=== PATIENT | female | born 1935 | race Caucasian/White ===

== ENCOUNTER 2019-10-18 13:03 | Emergency (ER) | payer SELFPAY ==
[~2019-10-18] VITALS: Ht 134.6 cm; Wt 50.3 kg
[2019-10-18 13:19] VITALS: BP 141/55
--- NOTE | 2019-10-18 13:22 | NUR ---
ELISABETH FROM HOME C/O R HIP PAIN S/P FALL X 20 MINS AGO. DENIES LOC. PATIENT STATES PAIN OF 05/19 AT THIS TIME. PATIENT POSITIONED FOR COMFORT; HOB ELEVATED; BEDRAILS UP X2; BED DOWN. ELLIOTT CELAYA MADE AWARE OF PT STATUS. Addendum: 10/18/19 at 1323 by [facility] PT GOT FENTANYL 10 MG VIA MUSCLE AT 13.00 PM.
[2019-10-18] MEDS ORDERED: KETOROLAC 30 MG/ML VIAL IVP ONE (13:30)
--- NOTE | 2019-10-18 13:43 | NUR ---
Patient taken to CT scan via gurney by [facility].
[2019-10-18 14:14] LABS: BASOPHILS % (AUTO) 0.7 % (0.0-2.0); EOSINOPHILS % (AUTO) 1.5 % (0.0-4.0); HEMATOCRIT 36.9 % (36-48); HEMOGLOBIN 12.3 g/dL (12.0-16.0); LYMPHOCYTES # (AUTO) 1.2 K/uL (2.5-16.5); LYMPHOCYTES % (AUTO) 43.6 % (20.5-51.1); MEAN CORPUSCULAR HEMOGLOBIN 31 pg (27-31); MEAN CORPUSCULAR HGB CONC 33 g/dL (33-37); MEAN CORPUSCULAR VOLUME 92.9 fL (80-94); MONOCYTES # (AUTO) 0.2 K/uL (0.8-1.0); MONOCYTES % (AUTO) 6.7 % (1.7-9.3); NEUTROPHILS # (AUTO) 1.3 K/uL (1.8-7.7); NEUTROPHILS % (AUTO) 47.5 % (42.2-75.2); PLATELET COUNT (AUTO) 190 K/uL (140-450); RED BLOOD CELL COUNT(AUTO) 3.97 MIL/uL (4.20-5.40); RED CELL DISTRIBUTION WIDTH 12.8 % (11.6-13.7); WHITE BLOOD COUNT (AUTO) 2.7 K/uL (4.8-10.8)
[2019-10-18 15:06] LABS: CARBON DIOXIDE 26.3 mmol/L (21-32); CHLORIDE 106 mmol/L (98-107); GLUCOSE 121 mg/dL (74-106); POTASSIUM 4.3 mmol/L (3.5-5.1); SODIUM SERUM 141 mmol/L (136-145); UREA NITROGEN, BLOOD 34 mg/dL (7-18)
[2019-10-18 15:12] LABS: ALBUMIN 3.7 g/dL (3.4-5.0); ASPARTATE AMINOTRANSFERASE 27 U/L (15-37); TOTAL BILIRUBIN 0.8 mg/dL (0.0-1.0)
--- NOTE | 2019-10-18 15:50 | NUR ---
SON AT BEDSIDE.
--- NOTE | 2019-10-18 16:27 | NUR ---
Patient and son unable to recall home medications. Pt reports he takes a blood thinner from [place] but does not recall the name or dose. Family will bring medications from home to be placed in med rec.
[2019-10-18] MEDS ORDERED: PROP20TA29 PO (16:38)
--- NOTE | 2019-10-18 17:39 | NUR ---
CALLED [facility] TO TRANSFER PT.
[2019-10-18 17:54] VITALS: BP 120/45
--- NOTE | 2019-10-18 17:54 | NUR ---
Patient to be transferred to ED [facility]. Is being transferred due to HIGH LEVEL. Receiving facility has accepting physician and available space. ER physician has signed transfer form. Patient or responsible republican has agreed to transfer and signed form. Patient belongings inventoried and will be sent with patient. Copy of nursing notes, lab reports, EKG, Physicians Orders and X-rays to be sent with patient. Report called to ALANA HENDERSON at receiving facility. S ambulance service has been called for transfer. ETA is 20 MINS.
== END 2019-10-18 17:54 | disposition short-term general hospital (02) ==
LOC: EDBD 13:03 → MED 13:03
DX: S72.141A Displaced intertrochanteric fracture of right femur, initial encounter for closed fracture (principal); I10 Essential (primary) hypertension; W01.0XXA Fall on same level from slipping, tripping and stumbling without subsequent striking against object, initial encounter; Y93.89 Activity, other specified; Y92.091 Bathroom in other non-institutional residence as the place of occurrence of the external cause; Y99.8 Other external cause status
CPT/HCPCS: 36415; 70450; 72192; 80053; 85025; 93005; 96374; 99285; J1885